=== PATIENT | male | born 1955 | race African-American/Black ===

== ENCOUNTER 2016-10-22 11:38 | Day surgery (SDC) | payer OTHER ==
[2016-10-18 10:53] VITALS: BMI 30.9
[~2016-10-22] VITALS: Ht 177.8 cm; Wt 95.9 kg
[~2016-10-22 11:38] MED LIST: CEFAZOLIN 1 GM INJ ONE; CEFAZOLIN 2 GM/50 ML (PMX) 50 ML IVPB ONE; SOD CHLORIDE 0.9% 1,000 ML IV SCH
[2016-10-22 12:44] VITALS: Ht 177.8 cm; Wt 95.9 kg
[2016-10-22 12:45] VITALS: BP 129/78; PULSE 99; RESP 16
--- NOTE | 2016-10-22 12:49 | RADRPT ---
PROCEDURE: XR Chest AP portable CLINICAL INDICATION: Preop TECHNIQUE: An AP portable radiograph of the chest was submitted. COMPARISON: None. FINDINGS: Support Hardware: None Cardiovascular: The cardiovascular silhouette appears unremarkable. Lung Osborne: The lung osborne appear clear with no nodule, alveolar infiltrate, or interstitial promi nence evident. Pleural Spaces: No pneumothorax or pleural effusion is identified. Osseous Structures: The osseous structures appear intact. Soft Tissues: The soft tissues appear unremarkable. IMPRESSION: Unremarkable portable chest. Physician Pernell Date Time Electronically viewed and signed by Deisy Pyle Physician on 10/22/2016 12:48 RH/
[2016-10-22] MEDS ORDERED: FENTAnyl 50 MCG/ML VIAL ONE (13:51)
[2016-10-22] MEDS ORDERED: KETOROLAC 30 MG INJ ONE (13:51)
[2016-10-22] MEDS ORDERED: BUPIVACAINE 0.5% (SDV) 30 ML INJ ONE (13:51)
[2016-10-22] MEDS ORDERED: LIDOCAINE 2% (MDV) 20 ML INJ ONE (13:53)
[2016-10-22] MEDS ORDERED: MIDAZOLAM 1 MG/ML 2 ML INJ ONE (13:56)
[2016-10-22] MEDS ORDERED: LIDOCAINE 1% (MPF) 30 ML INJ INJ ONE (14:00)
[2016-10-22] MEDS ORDERED: BUPIVACAINE 0.5% 30 ML VIAL INJ ONE (14:00)
[2016-10-22 14:20] VITALS: BP 150/89; PULSE 62; RESP 16
[2016-10-22 14:23] VITALS: BP 152/93; PULSE 68; RESP 15
[2016-10-22 14:28] VITALS: BP 155/91; PULSE 66; RESP 19
[2016-10-22] MEDS ORDERED: TRIMETHOBENZAMIDE 100 MG/ML VIAL IM PRN (14:30)
[2016-10-22] MEDS ORDERED: EPHEDrine SULFATE 50 MG/5 ML SYG IV PRN (14:30)
[2016-10-22] MEDS ORDERED: FENTAnyl 50 MCG/ML VIAL IV PRN ×3 (14:30)
[2016-10-22] MEDS ORDERED: hydrALAzine 20 MG INJ IV PRN (14:30)
[2016-10-22] MEDS ORDERED: MIDAZOLAM 1 MG/ML 2 ML INJ IV PRN (14:30)
[2016-10-22] MEDS ORDERED: LABETALOL HCL 20MG INJ IV PRN (14:30)
[2016-10-22] MEDS ORDERED: HYDROmorphONE (0.2 MG/ML) 10ML SYG IV PRN ×3 (14:30)
[2016-10-22] MEDS ORDERED: DIPHENHYDRAMINE 50 MG INJ IV PRN (14:30)
[2016-10-22] MEDS ORDERED: ACETAMINOPHEN 325 MG TAB PO ONE (14:30)
[2016-10-22] MEDS ORDERED: MEPERIDINE 25 MG INJ IV PRN (14:30)
[2016-10-22] MEDS ORDERED: ONDANSETRON 4 MG INJ IV PRN (14:30)
--- NOTE | 2016-10-22 14:33 | OPR ---
DATE OF OPERATION: 10/22/2016 INDICATION: This is a 61-year-old male with posterior neck mass. He requests surgical excision. R isks, alternatives, benefits, and personnel were discussed with the patient. The patient expressed understanding and consents to the operation. PREOPERATIVE DIAGNOSIS: Left posterior neck mass. POSTOPERATIVE DIAGNOSIS: Left posterior neck mass. OPERATIONS PERFORMED: 1. Excision of left posterior neck mass with 3 cm size incision and 3 x 2 cm size mass. 2. Localized adjacent tissue transfer with the use of skin flaps. SURGEON: Dung Segura MD SPECIMEN: Posterior neck mass. COMPLICATIONS: None. ANESTHESIA: MAC. DESCRIPTION OF PROCEDURE: The patient was taken to the OR and prepped and draped in the usual steri le fashion. Surgical time out was performed. IV antibiotics were given. Local anesthesia was infi ltrated into the mass site. A 15 blade was used to excise the mass and cautery was used to create h emostasis. There was good hemostasis. Due to tissue defect, localized adjacent tissue transfer wit h the use of skin flaps was performed. Multilayer closure with interrupted 3-0 Vicryl and skin stap les. Dry dressings were applied. Dictated By: DUNG DOW/TOYIN Conf#: [id number] DID#: [id number]
[2016-10-22 14:40] VITALS: BP 150/83; PULSE 77; RESP 18
--- NOTE | 2016-10-22 14:46 | RADRPT ---
Vent Rate: 67 bpm RR Interval: 0 msec NH Interval: 174 msec QRS Duration: 84 msec QT Interval: 392 msec QTC Interval: 414 msec P-R-T [place]: 66 - 57 - 47 degrees Normal sinus rhythm Early repolarization Normal ECG Electronically Signed By: Gray Araiza [id number]
== END 2016-10-22 15:15 | disposition home or self-care (01) ==
LOC: SDS 11:38 → EDSEX 11:38 → SDS 15:15
PROVIDERS: ATTEND Surgery
DX: R22.1 Localized swelling, mass and lump, neck (principal); F17.200 Nicotine dependence, unspecified, uncomplicated
CPT/HCPCS: 14040; 71010; 88304; 93005; J0690; J1885; J2250; J3010; Z7512; Z7610

== ENCOUNTER 2017-02-18 06:49 | Day surgery (SDC) | payer OTHER ==
[~2017-02-18] VITALS: Ht 177.8 cm; Wt 90.5 kg
[2017-02-18 07:22] VITALS: Ht 177.8 cm; Wt 90.5 kg
[2017-02-18 07:38] VITALS: BP 130/87; PULSE 67; RESP 20
--- NOTE | 2017-02-18 08:37 | OPR ---
Date/Time of Note Date/Time of Note DATE: 02/18/17 TIME: 08:35 Operative Report Free Text/Dictation Dr. Wren dictating the operative procedure Procedure colonoscopy which is a screening procedure Preop diagnosis rule out colon polyps Postop diagnosis 2 polyps noted as described below procedure After the informed written consent is obtained patient was given a 3 mg Versed 50 mcg of fentanyl when the patient becomes somnolent Olympus videocolonoscope was introduced into the rectum and scope was advanced all the way to the cecum Pentacel opening was photographed. 2 mm polyp was noted in the hepatic flexure Was removed with the help of the biopsy forceps Another 3 mm polyp was noted at 20 cm from the anus this polyp was also removed with the help of her biopsy forceps Rest of the colon appeared normal occasional diverticula noted On the way out retroflexion was performed no abnormality detected When the scope was removed minimal external hemorrhoids were noted which is not bleeding this is a small in size Plan recommend wait for the pathology before deciding about the next colonoscopy Procedure Date: Feb 18, 2017 DAVEY WREN MD Feb 18, 2017 08:37
[2017-02-18] MEDS ORDERED: MIDAZOLAM 1 MG/ML 2 ML INJ ONE ×2 (08:41)
[2017-02-18] MEDS ORDERED: FENTAnyl 50 MCG/ML VIAL ONE (08:41)
[2017-02-18 08:55] VITALS: BP 127/82; PULSE 66; RESP 14
== END 2017-02-18 16:45 | disposition home or self-care (01) ==
LOC: GIL 06:49
PROVIDERS: ATTEND Internal Medicine Gastroenterology
DX: Z12.11 Encounter for screening for malignant neoplasm of colon (principal); K63.5 Polyp of colon; K64.4 Residual hemorrhoidal skin tags
CPT/HCPCS: 45380; 88305; J2250; J3010; Z7610